=== PATIENT | female | born 1935 | race Caucasian/White ===

== ENCOUNTER 2016-08-22 15:32 | Emergency (ER) | payer OTHER ==
[~2016-08-22] VITALS: Ht 165.1 cm; Wt 65.0 kg
[~2016-08-22 15:32] MED LIST: CAL-TAB2 PO; FE T325T PO; KION15SU PO; KRIL1000 PO; LEVO50TA4 PO; MAGN30S PO; NORC10TA2 PO; NORC7.5T PO; RIVA10 PO; TAB-TAB PO; VITA-13 PO; VITA100017 PO; WALKER STANDARD; Z.0.WHEELELR
[2016-08-22 15:49] VITALS: BP 133/60; PULSE 67; RESP 18; TEMP 98.1; O2SAT 98
[2016-08-22] MEDS ORDERED: SODIUM CHLORIDE 0.9% FLUSH 10 ML FLUSH IVF PRN (16:00)
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
[2016-08-22 16:13] LABS: AUTOMATED NEUTROPHIL # 8.6 TH/MM3 (1.8-7.7); BASOPHIL % 0.2 % (0.0-2.0); EOSINOPHIL # 0.1 TH/MM3 (0-0.4); EOSINOPHIL % 1.1 % (0.0-4.0); HEMATOCRIT 41.9 % (35.0-46.0); HEMO FLAGS DIFF FINAL; LYMPH % 16.7 % (9.0-44.0); LYMPHOCYTE # 1.9 TH/MM3 (1.0-4.8); MEAN CELL VOLUME 95.9 FL (80.0-100.0); MEAN CORPUSCULAR HGB CONC 32.4 % (32.0-36.0); MONO % 7.3 % (0.0-8.0); NEUT % 74.7 % (16.0-70.0); PLATELET COUNT 271 TH/MM3 (150-450); RED BLOOD COUNT 4.37 MIL/MM3 (4.00-5.30); RED CELL DISTRIBUTION WIDTH 13.3 % (11.6-17.2); WHITE BLOOD COUNT 11.6 TH/MM3 (4.0-11.0)
[2016-08-22] MEDS ORDERED: LIDOCAINE 2%/EPINEPHrine 1:100,000 30ML MDV INFIL ONE (16:15)
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
[2016-08-22 16:47] LABS: ALT (GPT) 52 U/L (10-53); ANION GAP 8 MEQ/L (5-15); AST (GOT) 76 U/L (15-37); BICARBONATE 26.7 MEQ/L (21.0-32.0); BLOOD UREA NITROGEN 13 MG/DL (7-18); CHLORIDE 106 MEQ/L (98-107); GLOMERULAR FILTRATION RATE 40 ML/MIN (>89); POTASSIUM 3.5 MEQ/L (3.5-5.1); SODIUM (NA) 141 MEQ/L (136-145)
[2016-08-22 16:49] LABS: ALKALINE PHOSPHATASE 74 U/L (45-117); TOTAL BILIRUBIN ADULT 0.4 MG/DL (0.2-1.0)
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
--- NOTE | 2016-08-22 17:58 | PD ---
Physical Exam Narrative I was asked by Dr. Gardner to repair patient's lacerations. Please see her documentation for full H&P. Data Data Last Documented VS Vital Signs Date Time Temp Pulse Resp B/P Pulse Ox O2 Delivery O2 Flow Rate FiO2 08/22/16 15:49 98.1 67 18 133/60 98 Orders Electrocardiogram (08/22/16 15:56) Urinalysis - C+S If Indicated (08/22/16 15:56) Chest, Single Ap (08/22/16 15:56) Pelvis, Ap Only (Routine) (08/22/16 15:56) Ct Brain W/O Iv Contrast(Rout) (08/22/16 15:56) Ecg Monitoring (08/22/16 15:56) Iv Access Insert/Monitor (08/22/16 15:56) Oximetry (08/22/16 15:56) Sodium Chloride 0.9% Flush (Ns Flush) (08/22/16 16:00) Complete Blood Count With Diff (08/22/16 15:56) Comprehensive Metabolic Panel (08/22/16 15:56) Alcohol (Ethanol) (08/22/16 15:56) Ct Cerv Spine W/O Contrast (08/22/16 15:56) Lidocai-Epi 2%-1:100,000 Inj (Xylocaine- (08/22/16 16:15) Labs Laboratory Tests Test 08/22/16 16:00 White Blood Count 11.6 TH/MM3 Red Blood Count 4.37 MIL/MM3 Hemoglobin 13.6 GM/DL Hematocrit 41.9 % Mean Corpuscular Volume 95.9 FL Mean Corpuscular Hemoglobin 31.0 PG Mean Corpuscular Hemoglobin 32.4 % Concent Red Cell Distribution Width 13.3 % Platelet Count 271 TH/MM3 Mean Platelet Volume 7.6 FL Neutrophils (%) (Auto) 74.7 % Lymphocytes (%) (Auto) 16.7 % Monocytes (%) (Auto) 7.3 % Eosinophils (%) (Auto) 1.1 % Basophils (%) (Auto) 0.2 % Neutrophils # (Auto) 8.6 TH/MM3 Lymphocytes # (Auto) 1.9 TH/MM3 Monocytes # (Auto) 0.8 TH/MM3 Eosinophils # (Auto) 0.1 TH/MM3 Basophils # (Auto) 0.0 TH/MM3 CBC Comment DIFF FINAL Differential Comment Sodium Level 141 MEQ/L Potassium Level 3.5 MEQ/L Chloride Level 106 MEQ/L Carbon Dioxide Level 26.7 MEQ/L Anion Gap 8 MEQ/L Blood Urea Nitrogen 13 MG/DL Creatinine 1.29 MG/DL Estimat Glomerular Filtration 40 ML/MIN Rate Random Glucose 99 MG/DL Calcium Level 9.1 MG/DL Total Bilirubin 0.4 MG/DL Aspartate Amino Transf 76 U/L (AST/SGOT) Alanine Aminotransferase 52 U/L (ALT/SGPT) Alkaline Phosphatase 74 U/L Total Protein 7.2 GM/DL Albumin 3.8 GM/DL Ethyl Alcohol Level 199 MG/DL [facility] Supervised Visit with SIMI: No Procedures Procedure Narrative LACERATION REPAIR LOCATION: Right forearm LENGTH: Approximately 6 centimeters in total length crescent shaped NUMBER OF STITCHES/ISMAEL: 8 total with 4 of them buried all simple mattress. REPAIR: Verbal consent was obtained. The area of the laceration was cleaned and prepped. The laceration was infiltrated with lidocaine without epi. The wound was copiously irrigated and explored without evidence of foreign body, bony involvement, ligament injury, tendon injury, or neurovascular injury. The wound was closed using 4-0 Ethilon 4-0 Vicryl. This was a 2 layer repair. A sterile dressing was applied by nurse. The patient was advised to keep the affected area as clean and dry as possible using soap and water. There were no complications. Patient tolerated the procedure well. LACERATION REPAIR LOCATION: Dorsal aspect right hand LENGTH: Approximately 12 cm in total length irregular shape NUMBER OF STITCHES/ISMAEL: 16 combination simple interrupted and simple mattress REPAIR: Verbal consent was obtained. The area of the laceration was cleaned and prepped. The laceration was infiltrated with lidocaine without epi. The wound was copiously irrigated and explored without evidence of foreign body, bony involvement, ligament injury, tendon injury, or neurovascular injury. The wound was closed using 4-0 Ethilon. This was a single layer repair. A sterile dressing was applied by nurse. The patient was advised to keep the affected area as clean and dry as possible using soap and water. There were no complications. Patient tolerated the procedure well. Additional Instruction: Keep wound dry and clean as possible using soap and water. Use Neosporin to promote healing. Do not soak or submerge wound. Have sutures removed in 10-14 days. Andres Neal Aug 22, 2016 17:58
[2016-08-22 19:04] VITALS: BP 132/68
[2016-08-22] MEDS ORDERED: TRAM50TA PO (19:11)
[2016-08-22] MEDS ORDERED: SODIUM CHLOR 0.9% 1000 ML INJ 1,000 ML IV SCH (21:27)
[2016-08-22] MEDS ORDERED: BACITRACIN TOP OINT 15 GM TUBE TOP SCH (21:30)
[2016-08-22] MEDS ORDERED: PANTOPRAZOLE SODIUM 40 MG VIAL IVP SCH (21:30)
[2016-08-22] MEDS ORDERED: CHLORHEXIDINE GLUCONATE 2 % 1 PACK (2 CLOTHS) TOP PRN (21:30)
[2016-08-22] MEDS ORDERED: ACETAMINOPHEN/HYDROcodone 325 MG/5 MG TAB PO PRN ×2 (21:30)
[2016-08-22] MEDS ORDERED: DOCUSATE SODIUM 100 MG/10 ML UDC PO SCH (21:30)
[2016-08-22] MEDS ORDERED: MISCELLANEOUS NURSING INFORMATION XX SCH (21:30)
[2016-08-22] MEDS ORDERED: SODIUM CHLORIDE 0.9% FLUSH 10 ML FLUSH IV FLUSH PRN (21:30)
[2016-08-22] MEDS ORDERED: HYDROmorphone HCL PF 1 MG/ML VIAL IVP PRN (21:30)
[2016-08-22] MEDS ORDERED: ONDANSETRON HCL 4 MG/2 ML VIAL IV PRN (21:30)
[2016-08-22] MEDS ORDERED: ENALAPRILAT 1.25 MG/ML VIAL IV PRN (21:30)
[2016-08-22] MEDS ORDERED: DOCUSATE SODIUM 100 MG CAP PO SCH (21:30)
[2016-08-22] MEDS ORDERED: MULTIVITAMIN INJ 10 ML, THIAMINE INJ 100 MG, FOLIC ACID INJ 1 MG in SODIUM CHLORID 0.9%... IV SCH (23:30)
[2016-08-23] MEDS ORDERED: CHLORHEXIDINE GLUCONATE 2 % 1 PACK (2 CLOTHS) TOP SCH (04:00)
== END 2016-08-22 19:22 | disposition left against medical advice (07) ==
LOC: NEPC 15:32
DX: S22.31XA Fracture of one rib, right side, initial encounter for closed fracture (principal); S27.321A Contusion of lung, unilateral, initial encounter; S09.90XA Unspecified injury of head, initial encounter; F10.129 Alcohol abuse with intoxication, unspecified; N18.9 Chronic kidney disease, unspecified; V47.0XXA Car driver injured in collision with fixed or stationary object in nontraffic accident, initial encounter
CPT/HCPCS: 12004; 12032; 70450; 71010; 72125; 72170; 80053; 80307; 85025

== ENCOUNTER 2016-08-22 19:37 | Observation (INO) | payer OTHER ==
[~2016-08-22] VITALS: Ht 160 cm; Wt 59.3 kg
[~2016-08-22 19:37] MED LIST changes: +TRAM50TA PO
[2016-08-22 20:05] VITALS: BP 131/65; PULSE 70; RESP 16; TEMP 98; O2SAT 97
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
[2016-08-22 21:55] VITALS: O2SAT 94
[2016-08-22] MEDS: SODIUM CHLOR 0.9% 1000 ML INJ 1,000 ML IV SCH (21:57)
[2016-08-22] MEDS ORDERED: ACETAMINOPHEN/HYDROcodone 325 MG/5 MG TAB PO PRN (22:00)
[2016-08-22] MEDS: DOCUSATE SODIUM 100 MG CAP PO SCH (22:00)
[2016-08-22] MEDS ORDERED: HYDROmorphone HCL PF 1 MG/ML VIAL IVP PRN (22:00)
[2016-08-22] MEDS ORDERED: ENALAPRILAT 1.25 MG/ML VIAL IV PRN (22:00)
[2016-08-22] MEDS ORDERED: KETOROLAC TROMETHAMINE 30 MG/ML (IVP) VIAL IVP PRN (22:00)
[2016-08-22] MEDS: BACITRACIN TOP OINT 15 GM TUBE TOP SCH (22:00)
[2016-08-22] MEDS ORDERED: ONDANSETRON HCL 4 MG/2 ML VIAL IV PRN (22:00)
[2016-08-22] MEDS ORDERED: CHLORHEXIDINE GLUCONATE 2 % 1 PACK (2 CLOTHS) TOP PRN (22:00)
[2016-08-22] MEDS ORDERED: MISCELLANEOUS NURSING INFORMATION XX SCH (22:00)
[2016-08-22] MEDS: DOCUSATE SODIUM 100 MG/10 ML UDC PO SCH (22:00)
[2016-08-22] MEDS: PANTOPRAZOLE SODIUM 40 MG VIAL IVP SCH (22:08)
[2016-08-22] MEDS ORDERED: IODIXANOL 320 MG/ML 10 ML VIAL (for Rad CT) IV ONE (22:17)
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
[2016-08-22] MEDS: MULTIVITAMIN INJ 10 ML, THIAMINE INJ 100 MG, FOLIC ACID INJ 1 MG in SODIUM CHLORID 0.9%... IV SCH (23:09)
[2016-08-23] VITALS (8 sets, daily range): BP systolic 139–164; BP diastolic 56–73; PULSE 59–69; RESP 17–20; TEMP 97.4–98.7; O2SAT 92–98
[2016-08-23] MEDS ORDERED: CHLORHEXIDINE GLUCONATE 2 % 1 PACK (2 CLOTHS) TOP SCH (04:00)
[2016-08-23] MEDS: ACETAMINOPHEN/HYDROcodone 325 MG/5 MG TAB PO PRN ×4 (04:19→17:24)
[2016-08-23] MEDS: SODIUM CHLOR 0.9% 1000 ML INJ 1,000 ML IV SCH ×2 (04:28→11:16)
[2016-08-23 06:21] LABS: AUTOMATED NEUTROPHIL # 7.2 TH/MM3 (1.8-7.7); BASOPHIL % 0.4 % (0.0-2.0); EOSINOPHIL # 0.1 TH/MM3 (0-0.4); EOSINOPHIL % 0.6 % (0.0-4.0); HEMATOCRIT 38.9 % (35.0-46.0); HEMO FLAGS DIFF FINAL; LYMPH % 13.5 % (9.0-44.0); LYMPHOCYTE # 1.3 TH/MM3 (1.0-4.8); MEAN CELL VOLUME 94.6 FL (80.0-100.0); MEAN CORPUSCULAR HEMOGLOBIN 31.1 PG (27.0-34.0); MEAN CORPUSCULAR HGB CONC 32.9 % (32.0-36.0); MONO % 7.8 % (0.0-8.0); NEUT % 77.7 % (16.0-70.0); PLATELET COUNT 245 TH/MM3 (150-450); RED BLOOD COUNT 4.11 MIL/MM3 (4.00-5.30); RED CELL DISTRIBUTION WIDTH 13.3 % (11.6-17.2); WHITE BLOOD COUNT 9.3 TH/MM3 (4.0-11.0)
[2016-08-23 06:39] LABS: BICARBONATE 23.1 MEQ/L (21.0-32.0); POTASSIUM 3.9 MEQ/L (3.5-5.1)
--- NOTE | 2016-08-23 06:48 | RADRPT ---
EXAM DATE/TIME: 08/23/2016 05:08 [facility] COMPARISON: CHEST SINGLE AP, August 22, 2016, 16:09. INDICATIONS : Pain right chest and ribs. MEDICAL HISTORY : right rib fracture, pulmonary contusion SURGICAL HISTORY : None. ENCOUNTER: Subsequent ACUITY: 2 days PAIN SCORE: 8/10 LOCATION: Right chest FINDINGS: Right-sided rib fracture is again seen with slight adjacent parenchymal contusion. Slight left lung b ase atelectasis may be present. Heart and mediastinum are unremarkable for technique. No definite pne umothorax is seen for technique. CONCLUSION: Slight right lung contusion adjacent to rib fracture possibly slightly improved. Shan Alex MD on August 23, 2016 at 6:45 Board Certified Radiologist. This report was verified electronically.
[2016-08-23] MEDS: DOCUSATE SODIUM 100 MG/10 ML UDC PO SCH (09:00)
[2016-08-23] MEDS: DOCUSATE SODIUM 100 MG CAP PO SCH ×2 (09:01→21:00)
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
[2016-08-23] MEDS: BACITRACIN TOP OINT 15 GM TUBE TOP SCH ×2 (12:43→21:05)
[2016-08-23] MEDS ORDERED: MAGNESIUM HYDROXIDE SUSP 30 ML CUP PO SCH (21:00)
[2016-08-23] MEDS: SODIUM CHLORIDE 0.9% FLUSH 10 ML FLUSH IV FLUSH PRN (21:05)
[2016-08-23] MEDS: PANTOPRAZOLE SODIUM 40 MG VIAL IVP SCH (21:05)
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
[2016-08-23] MEDS: MULTIVITAMIN INJ 10 ML, THIAMINE INJ 100 MG, FOLIC ACID INJ 1 MG in SODIUM CHLORID 0.9%... IV SCH (23:59)
[2016-08-24 00:17] VITALS: BP 144/65; PULSE 60; RESP 17; TEMP 97.4; O2SAT 96
[2016-08-24] MEDS: ACETAMINOPHEN/HYDROcodone 325 MG/5 MG TAB PO PRN ×4 (02:30→14:45)
[2016-08-24 04:35] VITALS: BP 138/69; PULSE 59; RESP 17; TEMP 98.4; O2SAT 96
[2016-08-24] MEDS ORDERED: DOCU1CAP39 PO (06:59)
[2016-08-24] MEDS ORDERED: MAGN400S PO (06:59)
--- NOTE | 2016-08-24 07:10 | RADRPT ---
EXAM DATE/TIME: 08/24/2016 05:57 [facility] COMPARISON: CT THORAX W CONTRAST, August 22, 2016, 22:09. CHEST SINGLE AP, August 23, 2016, 5:08. INDICATIONS : Short of breath, pain right chest and ribs. MEDICAL HISTORY : rib fracture, pulmonary contusion SURGICAL HISTORY : None. ENCOUNTER: Subsequent ACUITY: 3 days PAIN SCORE: 10/10 LOCATION: Right chest FINDINGS: Portable AP view of the chest demonstrates a normal-sized cardiac silhouette. Lungs are underinflated . There is persistent subtle air space consolidation in the right middle lobe adjacent to the right r ib fracture that is minimally displaced. No pneumothorax is visualized. There is atelectasis at the l eft lung base. No effusion or pneumothorax identified. Bones demonstrate no acute finding. CONCLUSION: Stable chest x-ray with a mild right middle lobe airspace consolidation adjacent to the minimally dis placed right rib fracture. There is atelectasis at the left lung base. Pablo Young MD on August 24, 2016 at 7:06 Board Certified Radiologist. This report was verified electronically.
[2016-08-24 08:00] VITALS: BP 151/63; PULSE 59; RESP 20; TEMP 96.7; O2SAT 98
[2016-08-24] MEDS: SODIUM CHLORIDE 0.9% FLUSH 10 ML FLUSH IV FLUSH PRN (09:08)
[2016-08-24] MEDS: BACITRACIN TOP OINT 15 GM TUBE TOP SCH (09:08)
[2016-08-24] MEDS: DOCUSATE SODIUM 100 MG CAP PO SCH (09:08)
[2016-08-24 12:00] VITALS: BP 132/48; PULSE 66; RESP 18; TEMP 95.6; O2SAT 98
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
== END 2016-08-24 15:20 | disposition home or self-care (01) ==
LOC: NEPC 19:37 → INTOOBSV 20:01 → NEDA 20:01 → N06A 22:43 → UNDODISIN 08-24 15:20
PROVIDERS: ADMIT Surgery; ATTEND Surgery
DX: S27.321A Contusion of lung, unilateral, initial encounter (principal); S06.0X0A Concussion without loss of consciousness, initial encounter; S22.31XA Fracture of one rib, right side, initial encounter for closed fracture; S51.811A Laceration without foreign body of right forearm, initial encounter; S00.531A Contusion of lip, initial encounter; S10.93XA Contusion of unspecified part of neck, initial encounter; I12.9 Hypertensive chronic kidney disease with stage 1 through stage 4 chronic kidney disease, or unspecified chronic kidney disease; N18.9 Chronic kidney disease, unspecified; M06.9 Rheumatoid arthritis, unspecified; F17.210 Nicotine dependence, cigarettes, uncomplicated; R40.2410 Glasgow coma scale score 13-15, unspecified time; Y92.89 Other specified places as the place of occurrence of the external cause; R06.02 Shortness of breath; V47.5XXA Car driver injured in collision with fixed or stationary object in traffic accident, initial encounter; F10.129 Alcohol abuse with intoxication, unspecified; Y90.6 Blood alcohol level of 120-199 mg/100 ml
CPT/HCPCS: 12004; 12032; 70450; 71010; 71260; 72125; 72170; 74177; 80048; 80053; 80307; 85025; 94150; 94640; 94667; 94668; 97110; 97116; 97162; 99281; 99285; C9113; G0378; G8987; G8988; J1170; J2405; J3411; J7030; J7040; Q9967